=== PATIENT | male | born 1990 | race African-American/Black ===

== ENCOUNTER 2017-03-27 12:08 | Emergency (ER) | payer SELFPAY ==
[2017-03-27] MEDS ORDERED: Fluorescein Opthalmic Strip ONE ×2 (12:40→12:46)
[2017-03-27] MEDS ORDERED: Proparacaine 0.5% Opth 15 ML BOT ONE (12:41)
[2017-03-27] MEDS ORDERED: Ciprofloxacin 0.3% Ophth Drops 2.5 ml Bottle EA EYE SCH (13:30)
[2017-03-27] MEDS ORDERED: Adacel (T-DAP) 0.5 ML VIAL ONE (13:49)
== END 2017-03-27 14:21 | disposition home or self-care (01) ==
LOC: ERS 12:08
DX: S05.01XA Injury of conjunctiva and corneal abrasion without foreign body, right eye, initial encounter (principal); S05.02XA Injury of conjunctiva and corneal abrasion without foreign body, left eye, initial encounter; W22.8XXA Striking against or struck by other objects, initial encounter
CPT/HCPCS: 90471; 90715

== ENCOUNTER 2017-03-31 18:01 | Emergency (ER) | payer SELFPAY | END 2017-03-31 19:56 | disposition home or self-care (01) | LOC: ERS 18:01 | DX: H10.9 Unspecified conjunctivitis (principal) | CPT/HCPCS: 99283 ==